=== PATIENT | female | born 1945 | race Caucasian/White ===

== ENCOUNTER 2020-04-28 16:15 | Inpatient (IN) | payer MEDICARE ==
[2020-04-28] MEDS ORDERED: traMADol HCl 50 MG TAB PO PRN (22:55)
[2020-04-28] MEDS ORDERED: Nitroglycerin 0.4 MG TAB 1 EACH SL PRN (22:55)
[2020-04-28] MEDS ORDERED: HumaLOG 300 UNITS/3 ML VIAL SC PRN ×2 (22:57)
[2020-04-28] MEDS ORDERED: Dextrose 50% Abboject 50 ML SYRINGE SLOW IVP PRN (22:57)
[2020-04-28] MEDS ORDERED: Dextrose 5% in Water 1,000 ML IV PRN (22:57)
[2020-04-28] MEDS ORDERED: Acetaminophen 325 MG TAB PO PRN (22:58)
[2020-04-28] MEDS ORDERED: Bisacodyl 5 MG TAB PO PRN (22:58)
[2020-04-28] MEDS ORDERED: Bisacodyl 10 MG SUPP PR PRN (22:58)
[2020-04-29] MEDS: metFORMIN XR 500 MG TAB PO SCH ×2 (07:47→17:41)
[2020-04-29] MEDS: Cefepime 2 GM in Sodium Chloride 0.9% 100 ML IVPB SCH ×2 (07:55→21:02)
[2020-04-29] MEDS ORDERED: Cefepime 2 GM VIAL IVPB SCH (08:00)
[2020-04-29] MEDS: Lisinopril 10 MG TAB PO SCH ×2 (08:04→21:01)
[2020-04-29] MEDS: Amlodipine 10 MG TAB PO SCH (08:05)
[2020-04-29] MEDS: Clopidogrel Bisulfate 75 MG TAB PO SCH (08:06)
[2020-04-29] MEDS: Lantus 1000 UNITS/10 ML VIAL SC SCH (08:07)
[2020-04-29] MEDS ORDERED: Carvedilol 12.5 MG TAB PO SCH (09:00)
[2020-04-29] MEDS: Carvedilol 6.25 MG TAB PO SCH ×2 (10:08→21:01)
[2020-04-29 20:23] LABS: Vancomycin, Trough 10.5 ug/mL
[2020-04-29] MEDS ORDERED: Vancomycin HCl 750 MG in Sodium Chloride 0.9% 250 ML 250 ML IVPB SCH (21:00)
[2020-04-29] MEDS ORDERED: Vancomycin HCl 1 GM in Sodium Chloride 0.9% 250 ML 250 ML IVPB SCH (21:00)
[2020-04-29] MEDS: Aspirin 325 mg Enteric Coated Tablet PO SCH (21:01)
[2020-04-29] MEDS: Atorvastatin Calcium 40 MG TAB PO SCH (21:01)
[2020-04-29] MEDS: Mupirocin 2% Ointment 22 GM Tube TOP SCH (21:06)
[2020-04-29] MEDS: Vancomycin HCl 750 MG in Sodium Chloride 0.9% 250 ML 250 ML IVPB SCH (23:46)
[2020-04-29] MEDS: Vancomycin HCl 1 GM in Sodium Chloride 0.9% 250 ML 250 ML IVPB SCH (23:47)
[2020-04-30] MEDS: Cefepime 2 GM in Sodium Chloride 0.9% 100 ML IVPB SCH ×2 (09:53→20:10)
[2020-04-30] MEDS: Lantus 1000 UNITS/10 ML VIAL SC SCH (09:54)
[2020-04-30] MEDS: Carvedilol 6.25 MG TAB PO SCH ×2 (09:58→20:08)
[2020-04-30] MEDS: metFORMIN XR 500 MG TAB PO SCH ×2 (09:58→17:35)
[2020-04-30] MEDS: Amlodipine 10 MG TAB PO SCH (10:01)
[2020-04-30] MEDS: Clopidogrel Bisulfate 75 MG TAB PO SCH (10:01)
[2020-04-30] MEDS: Lisinopril 10 MG TAB PO SCH ×2 (10:01→20:09)
[2020-04-30] MEDS: Floranex Packet PO SCH (10:01)
[2020-04-30] MEDS: Mupirocin 2% Ointment 22 GM Tube TOP SCH ×2 (10:18→20:10)
[2020-04-30] MEDS: Aspirin 325 mg Enteric Coated Tablet PO SCH (20:08)
[2020-04-30] MEDS: Atorvastatin Calcium 40 MG TAB PO SCH (20:09)
[2020-04-30] MEDS: Loperamide HCl 2 MG CAP PO PRN (20:55)
[2020-05-01] MEDS: Vancomycin HCl 1 GM in Sodium Chloride 0.9% 250 ML 250 ML IVPB SCH (00:10)
[2020-05-01] MEDS: Vancomycin HCl 750 MG in Sodium Chloride 0.9% 250 ML 250 ML IVPB SCH (00:11)
[2020-05-01] MEDS: Mupirocin 2% Ointment 22 GM Tube TOP SCH ×2 (08:20→20:32)
[2020-05-01] MEDS: Lantus 1000 UNITS/10 ML VIAL SC SCH (08:21)
[2020-05-01] MEDS: Cefepime 2 GM in Sodium Chloride 0.9% 100 ML IVPB SCH ×2 (08:22→20:31)
[2020-05-01] MEDS: metFORMIN XR 500 MG TAB PO SCH ×2 (08:23→18:03)
[2020-05-01] MEDS: Clopidogrel Bisulfate 75 MG TAB PO SCH (08:27)
[2020-05-01] MEDS: Floranex Packet PO SCH (08:28)
[2020-05-01] MEDS: Carvedilol 6.25 MG TAB PO SCH ×2 (08:37→20:30)
[2020-05-01] MEDS: Amlodipine 10 MG TAB PO SCH (08:38)
[2020-05-01] MEDS: Lisinopril 10 MG TAB PO SCH ×2 (08:38→20:31)
[2020-05-01] MEDS: Atorvastatin Calcium 40 MG TAB PO SCH (20:30)
[2020-05-01] MEDS: Aspirin 325 mg Enteric Coated Tablet PO SCH (20:30)
[2020-05-01 23:15] LABS: Vancomycin, Trough 18.2 ug/mL
[2020-05-02] MEDS: Vancomycin HCl 1 GM in Sodium Chloride 0.9% 250 ML 250 ML IVPB SCH ×2 (00:09→17:14)
[2020-05-02] MEDS: Vancomycin HCl 750 MG in Sodium Chloride 0.9% 250 ML 250 ML IVPB SCH ×2 (00:09→17:15)
[2020-05-02] MEDS ORDERED: Mag-Al Plus 1200 MG/1200 MG/120 MG/30 ML UDCUP PO PRN (00:40)
[2020-05-02] MEDS: Loperamide HCl 2 MG CAP PO PRN (04:39)
[2020-05-02] MEDS: Lantus 1000 UNITS/10 ML VIAL SC SCH (09:16)
[2020-05-02] MEDS: Carvedilol 6.25 MG TAB PO SCH ×2 (09:19→21:14)
[2020-05-02] MEDS: Lisinopril 10 MG TAB PO SCH ×2 (09:20→21:13)
[2020-05-02] MEDS: Amlodipine 10 MG TAB PO SCH (09:21)
[2020-05-02] MEDS: Clopidogrel Bisulfate 75 MG TAB PO SCH (09:21)
[2020-05-02] MEDS: Floranex Packet PO SCH (09:21)
[2020-05-02] MEDS: metFORMIN XR 500 MG TAB PO SCH ×2 (09:21→17:15)
[2020-05-02] MEDS: Cefepime 2 GM in Sodium Chloride 0.9% 100 ML IVPB SCH ×2 (09:22→21:12)
[2020-05-02] MEDS: Mupirocin 2% Ointment 22 GM Tube TOP SCH ×2 (09:43→21:31)
[2020-05-02] MEDS: Atorvastatin Calcium 40 MG TAB PO SCH (21:14)
[2020-05-02] MEDS: Aspirin 325 mg Enteric Coated Tablet PO SCH (21:14)
[2020-05-03] MEDS: Lisinopril 10 MG TAB PO SCH ×2 (09:05→20:27)
[2020-05-03] MEDS: Cefepime 2 GM in Sodium Chloride 0.9% 100 ML IVPB SCH ×2 (09:05→20:26)
[2020-05-03] MEDS: Amlodipine 10 MG TAB PO SCH (09:06)
[2020-05-03] MEDS: Floranex Packet PO SCH (09:07)
[2020-05-03] MEDS: Carvedilol 6.25 MG TAB PO SCH ×2 (09:07→20:27)
[2020-05-03] MEDS: Clopidogrel Bisulfate 75 MG TAB PO SCH (09:07)
[2020-05-03] MEDS: metFORMIN XR 500 MG TAB PO SCH ×2 (09:07→17:22)
[2020-05-03] MEDS: Mupirocin 2% Ointment 22 GM Tube TOP SCH ×2 (09:08→20:30)
[2020-05-03] MEDS: Lantus 1000 UNITS/10 ML VIAL SC SCH (09:08)
[2020-05-03] MEDS: Vancomycin HCl 750 MG in Sodium Chloride 0.9% 250 ML 250 ML IVPB SCH (17:22)
[2020-05-03] MEDS: Vancomycin HCl 1 GM in Sodium Chloride 0.9% 250 ML 250 ML IVPB SCH (17:22)
[2020-05-03] MEDS: Atorvastatin Calcium 40 MG TAB PO SCH (20:25)
[2020-05-03] MEDS: Aspirin 325 mg Enteric Coated Tablet PO SCH (20:26)
[2020-05-04] MEDS: Cefepime 2 GM in Sodium Chloride 0.9% 100 ML IVPB SCH ×2 (08:57→21:01)
[2020-05-04] MEDS: Lantus 1000 UNITS/10 ML VIAL SC SCH (09:00)
[2020-05-04] MEDS: Floranex Packet PO SCH (09:02)
[2020-05-04] MEDS: Lisinopril 10 MG TAB PO SCH ×2 (09:05→21:07)
[2020-05-04] MEDS: Amlodipine 10 MG TAB PO SCH (09:06)
[2020-05-04] MEDS: Carvedilol 6.25 MG TAB PO SCH ×2 (09:06→21:08)
[2020-05-04] MEDS: Clopidogrel Bisulfate 75 MG TAB PO SCH (09:06)
[2020-05-04] MEDS: metFORMIN XR 500 MG TAB PO SCH ×2 (09:07→17:21)
[2020-05-04] MEDS: Mupirocin 2% Ointment 22 GM Tube TOP SCH ×2 (09:08→21:16)
[2020-05-04 16:11] LABS: Vancomycin, Trough 23.6 ug/mL
[2020-05-04] MEDS: Vancomycin HCl 1 GM in Sodium Chloride 0.9% 250 ML 250 ML IVPB SCH (17:21)
[2020-05-04] MEDS: Vancomycin HCl 750 MG in Sodium Chloride 0.9% 250 ML 250 ML IVPB SCH (17:22)
[2020-05-04] MEDS: Aspirin 325 mg Enteric Coated Tablet PO SCH (21:07)
[2020-05-04] MEDS: Atorvastatin Calcium 40 MG TAB PO SCH (21:07)
[2020-05-05] MEDS: Amlodipine 10 MG TAB PO SCH (08:37)
[2020-05-05] MEDS: metFORMIN XR 500 MG TAB PO SCH ×2 (08:37→17:30)
[2020-05-05] MEDS: Carvedilol 6.25 MG TAB PO SCH ×2 (08:39→22:17)
[2020-05-05] MEDS: Lisinopril 10 MG TAB PO SCH ×2 (08:40→22:16)
[2020-05-05] MEDS: Floranex Packet PO SCH (08:41)
[2020-05-05] MEDS: Cefepime 2 GM in Sodium Chloride 0.9% 100 ML IVPB SCH ×2 (08:43→19:47)
[2020-05-05] MEDS: Lantus 1000 UNITS/10 ML VIAL SC SCH (08:54)
[2020-05-05] MEDS: Mupirocin 2% Ointment 22 GM Tube TOP SCH ×2 (08:57→22:18)
[2020-05-05] MEDS: Clopidogrel Bisulfate 75 MG TAB PO SCH (09:00)
[2020-05-05 10:56] VITALS: BMI 30.9
[2020-05-05] MEDS: Vancomycin HCl 750 MG in Sodium Chloride 0.9% 250 ML 250 ML IVPB SCH (17:29)
[2020-05-05] MEDS: Vancomycin HCl 500 MG in Sodium Chloride 0.9% 100 ML IVPB SCH (17:29)
[2020-05-05] MEDS: Aspirin 325 mg Enteric Coated Tablet PO SCH (22:17)
[2020-05-05] MEDS: Atorvastatin Calcium 40 MG TAB PO SCH (22:17)
[2020-05-06] MEDS: Lisinopril 10 MG TAB PO SCH ×2 (09:51→21:25)
[2020-05-06] MEDS: Carvedilol 6.25 MG TAB PO SCH ×2 (09:52→21:26)
[2020-05-06] MEDS: Amlodipine 10 MG TAB PO SCH (09:53)
[2020-05-06] MEDS: Floranex Packet PO SCH (09:55)
[2020-05-06] MEDS: Clopidogrel Bisulfate 75 MG TAB PO SCH (09:55)
[2020-05-06] MEDS: metFORMIN XR 500 MG TAB PO SCH ×2 (09:55→17:55)
[2020-05-06] MEDS: Cefepime 2 GM in Sodium Chloride 0.9% 100 ML IVPB SCH ×2 (09:55→21:24)
[2020-05-06] MEDS: Mupirocin 2% Ointment 22 GM Tube TOP SCH ×2 (10:00→21:38)
[2020-05-06] MEDS: Lantus 1000 UNITS/10 ML VIAL SC SCH (10:06)
[2020-05-06] MEDS: Vancomycin HCl 500 MG in Sodium Chloride 0.9% 100 ML IVPB SCH (17:56)
[2020-05-06] MEDS: Vancomycin HCl 750 MG in Sodium Chloride 0.9% 250 ML 250 ML IVPB SCH (17:57)
[2020-05-06] MEDS: Atorvastatin Calcium 40 MG TAB PO SCH (21:25)
[2020-05-06] MEDS: Aspirin 325 mg Enteric Coated Tablet PO SCH (21:26)
[2020-05-07 04:33] LABS: Vancomycin, Trough 30.3 ug/mL
[2020-05-07] MEDS: Cefepime 2 GM in Sodium Chloride 0.9% 100 ML IVPB SCH ×2 (09:29→20:27)
[2020-05-07] MEDS: metFORMIN XR 500 MG TAB PO SCH ×2 (09:30→16:34)
[2020-05-07] MEDS: Clopidogrel Bisulfate 75 MG TAB PO SCH (09:31)
[2020-05-07] MEDS: Amlodipine 10 MG TAB PO SCH (09:31)
[2020-05-07] MEDS: Floranex Packet PO SCH (09:31)
[2020-05-07] MEDS: Lisinopril 10 MG TAB PO SCH ×2 (09:34→20:25)
[2020-05-07] MEDS: Carvedilol 6.25 MG TAB PO SCH ×2 (09:34→20:26)
[2020-05-07] MEDS: Mupirocin 2% Ointment 22 GM Tube TOP SCH ×2 (09:48→20:38)
[2020-05-07] MEDS: Lantus 1000 UNITS/10 ML VIAL SC SCH (09:49)
[2020-05-07 16:19] LABS: Vancomycin, Trough 21.4 ug/mL
[2020-05-07] MEDS: Vancomycin HCl 750 MG in Sodium Chloride 0.9% 250 ML 250 ML IVPB SCH (16:32)
[2020-05-07] MEDS: Vancomycin HCl 500 MG in Sodium Chloride 0.9% 100 ML IVPB SCH (16:33)
[2020-05-07] MEDS: Atorvastatin Calcium 40 MG TAB PO SCH (20:25)
[2020-05-07] MEDS: Aspirin 325 mg Enteric Coated Tablet PO SCH (20:25)
[2020-05-08] MEDS: Mupirocin 2% Ointment 22 GM Tube TOP SCH ×2 (09:20→21:10)
[2020-05-08] MEDS: Lisinopril 10 MG TAB PO SCH ×2 (09:30→21:01)
[2020-05-08] MEDS: Floranex Packet PO SCH (09:30)
[2020-05-08] MEDS: metFORMIN XR 500 MG TAB PO SCH ×3 (09:31→18:57)
[2020-05-08] MEDS: Carvedilol 6.25 MG TAB PO SCH ×2 (09:31→21:01)
[2020-05-08] MEDS: Clopidogrel Bisulfate 75 MG TAB PO SCH (09:31)
[2020-05-08] MEDS: Cefepime 2 GM in Sodium Chloride 0.9% 100 ML IVPB SCH ×2 (09:32→21:00)
[2020-05-08] MEDS: Amlodipine 10 MG TAB PO SCH (09:32)
[2020-05-08] MEDS: Lantus 1000 UNITS/10 ML VIAL SC SCH (09:33)
[2020-05-08] MEDS: Vancomycin HCl 750 MG in Sodium Chloride 0.9% 250 ML 250 ML IVPB SCH (17:22)
[2020-05-08] MEDS: Vancomycin HCl 500 MG in Sodium Chloride 0.9% 100 ML IVPB SCH (17:23)
[2020-05-08] MEDS ORDERED: Mag-Al Plus 1200 MG/1200 MG/120 MG/30 ML UDCUP PO PRN (18:43)
[2020-05-08] MEDS: Atorvastatin Calcium 40 MG TAB PO SCH (21:00)
[2020-05-08] MEDS: Aspirin 325 mg Enteric Coated Tablet PO SCH (21:00)
[2020-05-09] MEDS: Cefepime 2 GM in Sodium Chloride 0.9% 100 ML IVPB SCH ×2 (09:05→20:20)
[2020-05-09] MEDS: metFORMIN XR 500 MG TAB PO SCH ×2 (09:06→17:12)
[2020-05-09] MEDS: Floranex Packet PO SCH (09:06)
[2020-05-09] MEDS: Amlodipine 10 MG TAB PO SCH (09:07)
[2020-05-09] MEDS: Clopidogrel Bisulfate 75 MG TAB PO SCH (09:08)
[2020-05-09] MEDS: Carvedilol 6.25 MG TAB PO SCH ×2 (09:08→20:34)
[2020-05-09] MEDS: Lisinopril 10 MG TAB PO SCH ×2 (09:09→20:34)
[2020-05-09] MEDS: Lantus 1000 UNITS/10 ML VIAL SC SCH (09:10)
[2020-05-09] MEDS: Mupirocin 2% Ointment 22 GM Tube TOP SCH ×2 (09:12→20:36)
[2020-05-09] MEDS: Vancomycin HCl 750 MG in Sodium Chloride 0.9% 250 ML 250 ML IVPB SCH (17:13)
[2020-05-09] MEDS: Vancomycin HCl 500 MG in Sodium Chloride 0.9% 100 ML IVPB SCH (17:13)
[2020-05-09] MEDS: Atorvastatin Calcium 40 MG TAB PO SCH (20:33)
[2020-05-09] MEDS: Aspirin 325 mg Enteric Coated Tablet PO SCH (20:34)
[2020-05-10] MEDS: metFORMIN XR 500 MG TAB PO SCH ×2 (08:05→16:58)
[2020-05-10] MEDS: Lisinopril 10 MG TAB PO SCH ×2 (08:05→20:29)
[2020-05-10] MEDS: Carvedilol 6.25 MG TAB PO SCH ×2 (08:06→20:30)
[2020-05-10] MEDS: Amlodipine 10 MG TAB PO SCH (08:07)
[2020-05-10] MEDS: Clopidogrel Bisulfate 75 MG TAB PO SCH (08:07)
[2020-05-10] MEDS: Floranex Packet PO SCH (08:07)
[2020-05-10] MEDS: Lantus 1000 UNITS/10 ML VIAL SC SCH (08:13)
[2020-05-10] MEDS: Cefepime 2 GM in Sodium Chloride 0.9% 100 ML IVPB SCH ×2 (08:51→20:28)
[2020-05-10] MEDS: Mupirocin 2% Ointment 22 GM Tube TOP SCH ×2 (09:06→21:29)
[2020-05-10 16:49] LABS: Vancomycin, Trough 19.4 ug/mL
[2020-05-10] MEDS: Vancomycin HCl 750 MG in Sodium Chloride 0.9% 250 ML 250 ML IVPB SCH (16:58)
[2020-05-10] MEDS: Vancomycin HCl 500 MG in Sodium Chloride 0.9% 100 ML IVPB SCH (18:13)
[2020-05-10] MEDS: Atorvastatin Calcium 40 MG TAB PO SCH (20:29)
[2020-05-10] MEDS: Aspirin 325 mg Enteric Coated Tablet PO SCH (20:29)
[2020-05-11] MEDS: Lantus 1000 UNITS/10 ML VIAL SC SCH (09:03)
[2020-05-11] MEDS: Lisinopril 10 MG TAB PO SCH ×2 (09:06→20:32)
[2020-05-11] MEDS: Floranex Packet PO SCH (09:06)
[2020-05-11] MEDS: metFORMIN XR 500 MG TAB PO SCH ×2 (09:07→16:43)
[2020-05-11] MEDS: Clopidogrel Bisulfate 75 MG TAB PO SCH (09:07)
[2020-05-11] MEDS: Cefepime 2 GM in Sodium Chloride 0.9% 100 ML IVPB SCH ×2 (09:07→20:35)
[2020-05-11] MEDS: Carvedilol 6.25 MG TAB PO SCH ×2 (09:07→20:31)
[2020-05-11] MEDS: Mupirocin 2% Ointment 22 GM Tube TOP SCH ×2 (09:08→20:36)
[2020-05-11] MEDS: Amlodipine 10 MG TAB PO SCH (09:08)
[2020-05-11] MEDS: Vancomycin HCl 750 MG in Sodium Chloride 0.9% 250 ML 250 ML IVPB SCH (16:41)
[2020-05-11] MEDS: Vancomycin HCl 500 MG in Sodium Chloride 0.9% 100 ML IVPB SCH (16:42)
[2020-05-11] MEDS: Atorvastatin Calcium 40 MG TAB PO SCH (20:32)
[2020-05-11] MEDS: Aspirin 325 mg Enteric Coated Tablet PO SCH (20:32)
[2020-05-12 05:48] LABS: #Basophils 0.1 thou/uL (0.0-0.2); #Eosinphils 0.7 thou/uL (0.0-0.7); #Lymphocytes 1.8 thou/uL (1.20-3.40); #Monocytes 0.5 thou/uL (0.11-0.59); #Neutrophils 2.1 thou/uL (1.40-6.50); %Basophils 1.7 % (0.0-1.0); %Lymphocytes 35.4 % (21.0-51.0); %Monocytes 9.2 % (0.0-10.0); %Neutrophils 40.7 % (42.0-75.0); Hemoglobin 9.9 g/dL (12.0-16.0); Mean Corpuscular HGB CONC 31.8 g/dL (32.0-36.0); Mean Corpuscular Hemoglobin 29.2 pg (27.0-31.0); Mean Corpuscular Volume 91.7 fL (78.0-98.0); Mean Platelet Volume 7.4 fL (7.4-10.4); Platelet Count 155 thou/uL (130-400); RBC Distribution Width 13.1 % (11.5-14.5); Red Blood Cell (RBC) Count 3.39 mill/uL (4.20-5.40); White Blood Cell (WBC) Count 5.2 thou/uL (4.8-10.8)
[2020-05-12 06:05] LABS: ALT (SGPT) 8 U/L (8-55); AST (SGOT) 12 U/L (5-34); Albumin 2.9 g/dL (3.4-4.8); Alkaline Phosphatase 53 U/L (40-110); Anion Gap 15 mmol/L (10-20); BUN (Urea Nitrogen) 16 mg/dL (9.8-20.1); Bilirubin, Total 0.8 mg/dL (0.2-1.2); Calc. Creatinine Clearance 75 mL/min (70-130); Calcium 8.3 mg/dL (7.8-10.44); Carbon Dioxide 20 mmol/L (23-31); Chloride 109 mmol/L (98-107); Globulin 3.1 g/dL (2.4-3.5); Glucose 107 mg/dL (83-110); Potassium 3.9 mmol/L (3.5-5.1); Sodium 140 mmol/L (136-145)
[2020-05-12] MEDS: Cefepime 2 GM in Sodium Chloride 0.9% 100 ML IVPB SCH ×2 (08:56→20:49)
[2020-05-12] MEDS: Floranex Packet PO SCH (08:57)
[2020-05-12] MEDS: Clopidogrel Bisulfate 75 MG TAB PO SCH (08:57)
[2020-05-12] MEDS: Lisinopril 10 MG TAB PO SCH ×2 (08:58→20:47)
[2020-05-12] MEDS: Carvedilol 6.25 MG TAB PO SCH ×2 (08:58→20:46)
[2020-05-12] MEDS: Amlodipine 10 MG TAB PO SCH (08:59)
[2020-05-12] MEDS: metFORMIN XR 500 MG TAB PO SCH ×2 (09:00→16:48)
[2020-05-12] MEDS: Mupirocin 2% Ointment 22 GM Tube TOP SCH ×2 (09:10→20:56)
[2020-05-12] MEDS: Lantus 1000 UNITS/10 ML VIAL SC SCH (09:11)
[2020-05-12] MEDS: Vancomycin HCl 750 MG in Sodium Chloride 0.9% 250 ML 250 ML IVPB SCH (16:52)
[2020-05-12] MEDS: Vancomycin HCl 500 MG in Sodium Chloride 0.9% 100 ML IVPB SCH (17:03)
[2020-05-12] MEDS: Aspirin 325 mg Enteric Coated Tablet PO SCH (20:46)
[2020-05-12] MEDS: Atorvastatin Calcium 40 MG TAB PO SCH (20:46)
[2020-05-13 06:37] VITALS: BP 173/74; TEMP 98.2
[2020-05-13] MEDS: Cefepime 2 GM in Sodium Chloride 0.9% 100 ML IVPB SCH (09:03)
[2020-05-13] MEDS: Amlodipine 10 MG TAB PO SCH (09:05)
[2020-05-13] MEDS: Mupirocin 2% Ointment 22 GM Tube TOP SCH (09:05)
[2020-05-13] MEDS: Floranex Packet PO SCH (09:05)
[2020-05-13] MEDS: metFORMIN XR 500 MG TAB PO SCH (09:05)
[2020-05-13] MEDS: Clopidogrel Bisulfate 75 MG TAB PO SCH (09:05)
[2020-05-13] MEDS: Lantus 1000 UNITS/10 ML VIAL SC SCH (09:06)
[2020-05-13] MEDS: Lisinopril 10 MG TAB PO SCH (09:06)
[2020-05-13] MEDS: Carvedilol 6.25 MG TAB PO SCH (09:07)
--- NOTE | 2020-05-14 15:19 | DIS ---
DATE OF ADMISSION: 04/28/2020 DATE OF DISCHARGE: 05/13/2020 ADMISSION DIAGNOSES: 1. Cellulitis, left lower extremity. 2. Diabetes mellitus. 3. Hypertension. 4. Debilitation and weakness. 5. Coronary artery disease. DISCHARGE DIAGNOSES: 1. Cellulitis, left lower extremity, significantly improved. 2. Diabetes mellitus, controlled. 3. Hypertension, stable. BRIEF SUMMARY OF HOSPITAL COURSE AND HISTORY OF PRESENT ILLNESS: The patient is an extremely pleasant 74-year-old white female who was admitted to [facility] on 04/17/2020 with severe cellulitis, left lower extremity requiring IV vancomycin and IV cefepime. Her diabetes was controlled as well with Lantus. She underwent peripheral vascular studies and no surgery was required, but due to her continued need for IV antibiotics, she was transferred to [facility] on 04/28/2020. During her hospital course, she continued cefepime and vancomycin. She had significant decreased swelling and redness to the left lower extremity. She was able to ambulate with decreased pain. She was afebrile with a normal white count and thus was stable enough to be discharged on oral antibiotics on 05/13/2020. DISCHARGE ACTIVITY: As tolerated. DISCHARGE DIET: Discharge diabetic diet. DISCHARGE MEDICATIONS: 1. Bactrim double-strength 1 tablet p.o. b.i.d. x10 days. 2. The patient will continue Floranex. 3. She will start Keflex 500 mg p.o. t.i.d. x14 days. 4. She will be on Lantus 10 units daily. 5. Tylenol p.r.n. pain. 6. She will continue aspirin 325 mg daily. 7. Atorvastatin 80 mg daily. 8. Carvedilol 12.5 mg p.o. b.i.d. 9. The patient will take Plavix 75 mg daily. 10. Lisinopril 20 mg daily. 11. Nitroglycerin p.r.n. pain. 12. Metformin 500 mg p.o. b.i.d. 13. Imdur ER 60 mg daily. 14. Amlodipine 5 mg daily. 15. Lantus 15 units every morning. 16. Tramadol p.r.n. pain. FOLLOWUP: 1. She will follow up with her PCP within 7 days or sooner, if her symptoms worsen or exacerbate. 2. She will continue to check her Accu-Cheks and monitor her blood sugar with her diet and continue her diabetes medications. 3. Otherwise, she will continue all of her routine medications with activity as tolerated. Job ID: [id number]
--- NOTE | 2020-05-14 22:35 | PQF ---
CLINICAL DOCUMENTATION CLARIFICATION FORM: Dear : Verona Orona Date / Time: 05/15/2020 Please exercise your independent, professional judgment in responding to the clarification form. Clinical indicators are provided on the bottom of this form for your review Please check appropriate box(s): [ x] Cellulitis is associated with diabetes [ ] Cellulitis is not associated with diabetes [ ] Other diagnosis [ ] Unable to determine In addition, please specify: Present on Admission (POA): [x ] Yes [ ] No [ ] Unable to determine To be completed by CDI/Coding staff for physician review: Present Clinical Indicators - Signs / Symptoms / Labs Results and Location in Medical Record [ x ] Celluilitis failed outpatient treatment, worsening despite compliance with Bactrim. Start on Vancomycin and Cefepime Physical document 04/28/notes [ x ] Uncontrolled DM2. Follow up HgA1c. Continue home meds, mild SSI with goal < 200 Physical document 04/28/notes [ x ] She states the pain, swelling and redness worsened despite compliance to her medication Physical document 04/28/notes [ x ] She states her diabetes is uncontrolled, but has been following with her PCP to control her sugars Physical document 04/28/notes [ x ] POC glucoes were 113, 129, 118 Laboratory Present Risk Factors Results and Location in Medical Record [ x ] History of uncontrolled diabetes mellitus, hypertension and hyperlipidemia Physical document 04/28/notes Present Treatments Results and Location in Medical Record [ x ] IV Cefepime 04/29-05/13 Medications [ x ] IV Vancomycin 04/29-05/13 Medications [ x ] Insulin Glargine 15 units 04/29-05/13 Medications CDS/Nurse Sane Signature: [id number] Phone #: Date/Time: 05/15/2020 This is a permanent part of the Medical Record [facility]
--- NOTE | 2020-06-14 06:19 | HP ---
CHIEF COMPLAINT: Requiring IV antibiotics for cellulitis. HISTORY OF PRESENT ILLNESS: The patient is extremely pleasant 74-year-old white female with history of diabetes, who presented to [facility] on 04/17/2020 due to cellulitis of her lower extremity. The patient during hospitalization had an MRI, which showed only soft tissue injury and no osteomyelitis. She also had an aortogram and vascular study, which she underwent evaluation to see if she needed any vascular procedures, but did not. Improved with several days of IV antibiotics, but on 04/28/2020, the patient needed continued IV antibiotics and thus was admitted to [facility] to continue her antibiotics until May 22 per Infectious Disease recommendations. The patient also has diabetes mellitus, which is uncontrolled and required further adjustments and required physical therapy and occupational therapy. PAST MEDICAL HISTORY: 1. Cellulitis of the lower extremity as above. 2. History of peripheral vascular disease. 3. History of uncontrolled diabetes. 4. History of depression with anxiety. 5. History of coronary artery disease status post graft x4. 6. Hypertension. 7. Hyperlipidemia. REVIEW OF SYSTEMS: The patient reports some depressed mood related to her required hospitalization, but no overt depression. She denies any fevers, chills, or night sweats. No nausea, vomiting, or diarrhea. No chest pain or shortness of breath. No dysuria, hematuria, or change in urinary frequency. She does have some pain in her left lower extremity, which is fairly well controlled. The patient denies any rashes. No recent weight changes reported by the patient. PHYSICAL EXAMINATION: GENERAL: White female, alert, oriented x3, in no obvious distress. HEENT: Atraumatic and normocephalic. EOMs are intact. Pupils equal, round, and reactive to light and accommodation. VITAL SIGNS: Blood pressure was 138/68, respiratory rate was 16, and pulse was 82. CHEST: Clear to auscultation bilaterally. HEART: Regular rate and rhythm without murmurs, rubs, or gallops. ABDOMEN: Soft, nontender, and nondistended. No masses were palpated. EXTREMITIES: Left lower extremity showed diffuse erythema mainly in the distal foot involving the second and third digits and the area around that is slightly warm to palpation and red. The patient was able to move her toes. Sensation was decreased to lower extremities bilaterally. ASSESSMENT AND PLAN: 1. Extensive left lower extremity cellulitis. The patient will continue IV cefepime and IV vancomycin until May 22 or sooner if her symptoms improve. We will monitor her closely as recommended by Dr. Park, Infectious Disease. 2. Diabetes mellitus. We will place the patient back on her metformin as well as her Lantus and Accu-Cheks before meals and at bedtime. 3. Hypertension. We will continue the patient on her current medications and follow her blood pressure. 4. Peripheral vascular disease. The patient will continue Plavix 75 mg daily as well as aspirin 325 mg daily. 5. Coronary artery disease. The patient will continue nitroglycerin p.r.n. pain. 6. Debilitation and weakness. The patient will be initiated with physical therapy and occupational therapy. If she is ambulatory, she will not need deep venous thrombosis prophylaxis. We will monitor her closely. DISPOSITION: Plan is to be discharged to home once her cellulitis significantly improves. Job ID: [id number]
== END 2020-05-13 13:20 | disposition home or self-care (01) | DRG 638 ==
LOC: BURMED 18:12
PROVIDERS: ADMIT Family Medicine; ATTEND Family Medicine
DX: E11.628 Type 2 diabetes mellitus with other skin complications (principal); L03.116 Cellulitis of left lower limb; I73.9 Peripheral vascular disease, unspecified; F41.9 Anxiety disorder, unspecified; F32.9 Major depressive disorder, single episode, unspecified; I25.10 Atherosclerotic heart disease of native coronary artery without angina pectoris; E78.5 Hyperlipidemia, unspecified; I10 Essential (primary) hypertension; Z95.1 Presence of aortocoronary bypass graft
CPT/HCPCS: 36416; 80053; 80202; 85025; 86140; 87324; 87449; 36415-59; J0692; J1815; J3370; J3490; J7050